=== PATIENT | male | born 1950 | race Caucasian/White ===

== ENCOUNTER 2020-02-26 05:31 | Day surgery (SDC) | payer MEDICARE, BC ==
[2020-02-19 14:59] LABS: CLARITY,URINE CLEAR (Clear); COLOR,URINE YELLOW (Yellow); GLUCOSE, URINE NEGATIVE (Neg); KETONES,URINE NEGATIVE (Neg); LEUKOCYTE ESTERASE ,URINE NEGATIVE (Neg); NITRITES, URINE NEGATIVE (Neg); OCCULT BLOOD,URINE TRACE-LYSED (Neg); PH,URINE 5.5 (4.8-8.0); PROTEIN,URINE NEGATIVE (Neg); UROBILINOGEN,URINE 0.2 E.U/dL (0.2-1.0)
[2020-02-19 15:00] LABS: UA COLLECTION TYPE CLN CATCH MIDSTREAM
[2020-02-19 15:02] LABS: BASOPHILS # (AUTO) 0.1 X10'3 (0-0.2); EOSINOPHILS # (AUTO) 0.4 X10'3 (0-0.9); EOSINOPHILS % (AUTO) 5.7 % (0-6); LYMPHOCYTES # (AUTO) 1.8 X10'3 (1.1-4.8); LYMPHOCYTES % (AUTO) 29.5 % (21-51); MEAN CORPUSCULAR HEMOGLOBIN 32.8 PG (27.0-31.0); MEAN CORPUSCULAR HGB CONC 34.4 g/dL (33.0-36.5); MEAN CORPUSCULAR VOLUME 95.1 FL (78-98); MEAN PLATELET VOLUME 7.9 FL (7.4-10.4); MONOCYTES # (AUTO) 0.7 X10'3 (0-0.9); MONOCYTES % (AUTO) 11.2 % (2-12); NEUTROPHILS # (AUTO) 3.3 X10'3 (1.8-7.7); NEUTROPHILS % (AUTO) 52.6 % (42-75); PRE OP HEMATOCRIT 45.7 % (42.0-52.0); PRE OP HEMOGLOBIN 15.7 g/dL (14.0-17.9); PRE OP PLATELET COUNT 136 X10'3 (140-440); RED BLOOD COUNT 4.81 X10'6 (4.70-6.10); RED CELL DISTRIBUTION WIDTH 12.9 % (11.5-14.5)
[2020-02-19 15:07] LABS: BACTERIA,URINE NONE SEEN /HPF (Neg); MUCUS STRANDS NONE SEEN /LPF (Neg); RBC,URINE 0-2 /HPF (0-2); SQUAMOUS EPITHELIAL CELL,UR NONE SEEN /LPF (FEW); WBC,URINE NONE SEEN /HPF (0-4)
[2020-02-19 15:12] LABS: ALBUMIN 4.1 G/DL (3.4-5.0); ALBUMIN/GLOBULIN RATIO 1.2 (1.1-1.5); ALKALINE PHOSPHATASE 59 IU/L (46-116); BLOOD UREA NITROGEN 15 MG/DL (7-18); BUN/CREATININE RATIO 14.9 (5.4-32.0); CALCIUM 8.9 MG/DL (8.5-10.1); CHLORIDE 104 MMOL/L (99-107); CREATININE 1.01 MG/DL (0.60-1.10); PRE OP ALT 59 U/L (30-65); PRE OP ANION GAP 6 (8-16); PRE OP AST 35 U/L (10-37); PRE OP BILIRUB, TOTAL 2.1 MG/DL (0.0-1.0); PRE OP GLUCOSE 112 MG/DL (70-104); PRE OP POTASSIUM 4.2 MMOL/L (3.4-5.1); PRE OP SODIUM 140 MMOL/L (135-145); TOTAL CARBON DIOXIDE 29.6 MMOL/L (24-32); TOTAL PROTEIN 7.6 G/DL (6.4-8.2); eGFR 73 ML/MIN
[~2020-02-26] VITALS: Ht 175.3 cm; Wt 96.9 kg
[2020-02-26] VITALS (9 sets, daily range): BP systolic 135–143; BP diastolic 73–85
[~2020-02-26 05:31] MED LIST: ASPI-1264 PO; DOCUMENT DATE & TIME OF BETA-BLOCKER PO ONE; METO-411 PO; MULT-1141 PO; OMEG10006 PO; SIMV-42 PO; TURM500C4 PO; ceFAZolin 2gm in dextrose, iso 50 ML IV ONE; famotidine 20mg tablet PO ONE; ringers solution, lacted 1,000 ML IV SCH
[2020-02-26] MEDS ORDERED: LIDOcaine 1% (10mg/ml) 2ml vial ONE (05:55)
[2020-02-26] MEDS ORDERED: BUPIVAcaine/PF 2.5 mg/ml (0.25%) 30ml vial ONE ×2 (06:34→08:50)
[2020-02-26] MEDS ORDERED: bacitracin 15gm ointment TP ONE (06:34)
[2020-02-26] MEDS ORDERED: cloNIDine hcl/PF 100mcg/ml inj ONE (07:02)
[2020-02-26] MEDS ORDERED: fentaNYL/PF 50MCG/1 ML 2ML syringe ONE (07:03)
[2020-02-26] MEDS ORDERED: sevoflurane 250ml liquid IH ONE (07:06)
[2020-02-26] MEDS ORDERED: LIDOcaine 2% 5ml jelly ONE (07:08)
[2020-02-26] MEDS ORDERED: midazolam 2 mg/2 ml injection ONE (07:08)
[2020-02-26] MEDS ORDERED: ringers solution, lacted 1,000 ML IV SCH (07:11)
[2020-02-26] MEDS ORDERED: proCHLORperazine 10 MG/2 ml inj IV PRN (07:15)
[2020-02-26] MEDS ORDERED: morphine 2 MG/ML inj. syringe IV PRN (07:15)
[2020-02-26] MEDS ORDERED: acetaminophen 1,000mg/100ml IV 100 ML IV PRN (07:15)
[2020-02-26] MEDS ORDERED: meperidine/PF 25mg/ml syringe IV PRN ×3 (07:15)
[2020-02-26] MEDS ORDERED: ondansetron/PF 4mg/2ml inj IV PRN (07:15)
[2020-02-26] MEDS ORDERED: morphine 4 MG/ML inj SYRINge IV PRN (07:15)
[2020-02-26] MEDS ORDERED: ePHEDrine 50MG/ML INJ. ONE (07:43)
[2020-02-26] MEDS ORDERED: 0.9 % SODIUM CHLORIDE 10 ML VIAL ONE (07:43)
[2020-02-26] MEDS ORDERED: propofol inj 20 ML IV ONE (07:43)
[2020-02-26] MEDS ORDERED: LIDOcaine 2% (20mg/ml) 5ml vial ONE (07:43)
[2020-02-26] MEDS ORDERED: dexamethasone sod phosphate 4mg/ml inj. ONE (07:43)
[2020-02-26] MEDS ORDERED: rocuronium 10mg/ml inj IV ONE (07:43)
[2020-02-26] MEDS ORDERED: ROPIVAcaine 0.5% (5mg/ml) 30ml vial ONE (07:43)
[2020-02-26] MEDS ORDERED: ondansetron/PF 4mg/2ml inj ONE (07:45)
--- NOTE | 2020-02-26 09:27 | NUR ---
Received from OR via , accompanied by Anesthesiologist DR YOON and report given by Anesthesiolgist. PT IS SOMNOLENT AND NOT RESPONDING TO VOICE, SKIN WARM AND PINK, VSS, PIV LEFT WRIST 20G, LEFT LE WITH SPLINT AND BEBETO WRAP.
--- NOTE | 2020-02-26 09:35 | NUR ---
PT IS NOW AWAKE AND ALERT, MOVING EXT X 4.
--- NOTE | 2020-02-26 10:35 | NUR ---
PT MEETS DISCHARGE CRITERIA. IV REMOVED, DISCHARGE INSTRUCTIONS REVIEWED WITH PT, HARD COPY GIVEN TO PT TO TAKE HOME, NATALYA FLUIDS, NO N OR V, UP TO W/C INDEPENDENT WHILE MAINTAINING NWBING STATUS. DISCHARGED TO PRIVATE VEHICLE VIA W/C.
== END 2020-02-26 10:37 | disposition home or self-care (01) ==
LOC: PAS 05:31
PROVIDERS: ATTEND Podiatrist Foot & Ankle Surgery
DX: T84.84XA Pain due to internal orthopedic prosthetic devices, implants and grafts, initial encounter (principal); M76.62 Achilles tendinitis, left leg; M77.32 Calcaneal spur, left foot; I25.10 Atherosclerotic heart disease of native coronary artery without angina pectoris; I10 Essential (primary) hypertension; I25.2 Old myocardial infarction; M17.11 Unilateral primary osteoarthritis, right knee; M19.042 Primary osteoarthritis, left hand; M19.041 Primary osteoarthritis, right hand; G89.18 Other acute postprocedural pain; Z79.899 Other long term (current) drug therapy; Z11.59 Encounter for screening for other viral diseases; Z79.82 Long term (current) use of aspirin; Z95.5 Presence of coronary angioplasty implant and graft; Z90.49 Acquired absence of other specified parts of digestive tract; Z98.890 Other specified postprocedural states; Z88.8 Allergy status to other drugs, medicaments and biological substances; Z88.5 Allergy status to narcotic agent; Y83.8 Other surgical procedures as the cause of abnormal reaction of the patient, or of later complication, without mention of misadventure at the time of the procedure; Y92.89 Other specified places as the place of occurrence of the external cause
CPT/HCPCS: 20680; 27650; 28119; 36415; 64445; 64447; 73650; 76000; 80053; 81001; 82948; 85025; 93005; A6223; C1713; J0735; J1100; J2001; J2250; J2405; J2704; J3010; J3490; J7120; U0003; A4215; A4618; A6253; A6446; A6449; A7000; J2795